=== PATIENT | male | born 1950 | race Caucasian/White ===

== ENCOUNTER 2022-11-22 08:04 | Outpatient (CLI) | payer MEDICARE, SELFPAY ==
[2022-11-22 10:14] LABS: Chloride* 101 mmol/L (96-114); Potassium* 4.5 mmol/L (3.6-5.1); Sodium* 139 mmol/L (135-149)
[2022-11-22 10:17] LABS: Blood Urea Nitrogen* 42 mg/dL (7-30); Carbon Dioxide* 29 mmol/L (20-32); Creatinine* 1.7 mg/dL (0.5-1.5); Estimated Glomerular Filt Rate 42 ml/min
[2022-11-22 10:18] LABS: Calcium* 9.8 mg/dL (8.4-10.6); Glucose* 123 mg/dL (60-115)
== END 2022-11-22 08:05 | disposition home or self-care (01) ==
PROVIDERS: Visit Provider Surgery
DX: E11.621 Type 2 diabetes mellitus with foot ulcer (principal); L97.526 Non-pressure chronic ulcer of other part of left foot with bone involvement without evidence of necrosis; I70.202 Unspecified atherosclerosis of native arteries of extremities, left leg
CPT/HCPCS: 36415; 80048; 87070; 87077; 87186; 97597; 99203

== ENCOUNTER 2022-11-24 14:38 | Outpatient (CLI) | payer MEDICARE, SELFPAY ==
--- NOTE | 2022-11-24 15:00 | CRLHL7_ITS ---
For Patients: As a result of the 21st Century Cures Act, medical imaging exams and procedure reports are released immediately into your electronic medical record. You may view this report before your referring provider. If you have questions, please contact your health care provider. DUPLEX BILATERAL LOWER EXTREMITY ARTERIAL ULTRASOUND INDICATION: Nonhealing left foot wound. COMPARISON: None. TECHNIQUE: The bilateral lower extremity arteries were examined per exam specific protocol with tse-scale ultrasound, color-flow and Doppler spectral analysis. Peak systolic velocities (PSV), Doppler waveform quality and Velocity Ratios if applicable, were documented at sites per exam specific protocol. FINDINGS: Extensive shadowing atherosclerotic calcification is seen throughout the bilateral lower extremity arterial systems, which may obscure underlying disease. Right lower extremity: Multiphasic waveforms are seen in the common femoral, deep femoral, and proximal and mid-femoral arteries with transition to monophasic waveforms in the distal SFA. No hemodynamically significant stenoses or occlusions are identified. Left lower extremity: Multiphasic waveforms are seen in the common femoral, deep femoral, proximal femoral arteries with transition to monophasic waveforms in the mid-femoral artery. Elevated velocities are seen in the popliteal artery measuring up to 270 cm/s, which may be indicative of underlying disease in this region. RIGHT: PSV (cm/second). Waveform (Tri-T, Bi-B Oldham-M). HEAT PLANT SPECIALIST: 207. Bi. DFA: 97. Tri. FA PRX: 92. Bi. FA MID: 68. Bi. FA DISTAL: 94. [place]ham. POP A: 84. Bi. RENATA A: 41. [place]ham. DOCUMENTATION ANALYST: 12. Oldham. GAIL: 14. Oldham. DPA: 42. [place]ham. LEFT: PSV (cm/second). Waveform (Tri-T, Bi-B Oldham-M). HEAT PLANT SPECIALIST: 94. Bi. DFA: 71. Tri. FA PRX: 52. Bi. FA MID: 30. Oldham. FA DISTAL: 50. Oldham. POP A: 270. Oldham. RENATA A: 17. Oldham. DOCUMENTATION ANALYST: 25. Oldham. GAIL: 51. Oldham. DPA: 55. Oldham. IMPRESSION: 1. Right lower extremity: Transition to monophasic waveforms in the distal SFV which may be indicative of underlying disease in this region. No hemodynamically significant stenoses or occlusions are identified. 2. Left lower extremity: Transition to monophasic waveforms in the mid-femoral artery, which may be indicative of underlying disease in this region. Elevated velocities in the popliteal artery which may be indicative of underlying disease in this region. No hemodynamically significant stenoses or occlusions are definitively identified. Reddy Wilkerson M.D. [email or web address] RISA/Dictated by: Reddy Wilkerson MD @ 11/25/2022 12:21:00 PM (Electronically Signed)
== END 2022-11-24 14:39 | disposition home or self-care (01) ==
LOC: US 14:40
PROVIDERS: Visit Provider Surgery
DX: E08.621 Diabetes mellitus due to underlying condition with foot ulcer (principal); L97.509 Non-pressure chronic ulcer of other part of unspecified foot with unspecified severity; I70.202 Unspecified atherosclerosis of native arteries of extremities, left leg
CPT/HCPCS: 93926

== ENCOUNTER 2022-11-29 08:40 | Outpatient (CLI) | payer MEDICARE, SELFPAY | END 2022-11-29 08:41 | disposition home or self-care (01) | LOC: WOUND 08:40 | PROVIDERS: Visit Provider Surgery | DX: E11.621 Type 2 diabetes mellitus with foot ulcer (principal); L97.526 Non-pressure chronic ulcer of other part of left foot with bone involvement without evidence of necrosis; I70.202 Unspecified atherosclerosis of native arteries of extremities, left leg; Z79.4 Long term (current) use of insulin; Z79.84 Long term (current) use of oral hypoglycemic drugs | CPT/HCPCS: 97602; 99214 ==

== ENCOUNTER 2022-12-06 08:32 | Outpatient (CLI) | payer MEDICARE, SELFPAY | END 2022-12-06 08:33 | disposition home or self-care (01) | LOC: WOUND 08:32 | PROVIDERS: Visit Provider Surgery | DX: E11.621 Type 2 diabetes mellitus with foot ulcer (principal); L97.523 Non-pressure chronic ulcer of other part of left foot with necrosis of muscle; L97.509 Non-pressure chronic ulcer of other part of unspecified foot with unspecified severity; Z79.4 Long term (current) use of insulin; Z79.84 Long term (current) use of oral hypoglycemic drugs | CPT/HCPCS: 97602; 99212 ==

== ENCOUNTER 2022-12-07 09:08 | Outpatient (CLI) | payer MEDICARE, SELFPAY ==
--- NOTE | 2022-12-07 09:15 | CRLHL7_ITS ---
For Patients: As a result of the Cures Act, medical imaging exams and procedure reports are released immediately into your electronic medical record. You may view this report before your referring provider. If you have questions, please contact your health care provider. INDICATION: Ulcer lateral left 4th toe. COMPARISON: None. TECHNIQUE: Axial T1 and STIR, coronal T1 and STIR and sagittal T1 and STIR left forefoot. FINDINGS: No abnormal marrow signal. Soft tissue edema dorsally with swelling. No abscess or other organized fluid. No soft tissue mass. No tenosynovitis. High STIR intermediate T1 bandage or marker in the interspace between 4th and 5th toes. Similar appearance across the dorsum of the foot. IMPRESSION: No evidence for osteomyelitis. No abscess. Diffuse prominent nonspecific soft tissue edema. Dictated by Jose Guadalupe Polanco MD @ 12/07/2022 3:16:46 PM (Electronically Signed)
== END 2022-12-07 09:09 | disposition home or self-care (01) ==
LOC: MRI 09:09
PROVIDERS: Visit Provider Surgery
DX: E08.621 Diabetes mellitus due to underlying condition with foot ulcer (principal); L97.509 Non-pressure chronic ulcer of other part of unspecified foot with unspecified severity
CPT/HCPCS: 73718

== ENCOUNTER 2023-01-03 08:32 | Outpatient (CLI) | payer MEDICARE, SELFPAY | END 2023-01-03 08:33 | disposition home or self-care (01) | LOC: WOUND 08:32 | PROVIDERS: Visit Provider Physician Assistant Surgical | DX: E11.621 Type 2 diabetes mellitus with foot ulcer (principal); L97.526 Non-pressure chronic ulcer of other part of left foot with bone involvement without evidence of necrosis; I73.9 Peripheral vascular disease, unspecified; G62.9 Polyneuropathy, unspecified; Z79.84 Long term (current) use of oral hypoglycemic drugs | CPT/HCPCS: 11043; 99213 ==

== ENCOUNTER 2023-01-10 08:45 | Outpatient (CLI) | payer MEDICARE, SELFPAY | END 2023-01-10 08:46 | disposition home or self-care (01) | LOC: WOUND 08:46 | PROVIDERS: Visit Provider Surgery | DX: E11.621 Type 2 diabetes mellitus with foot ulcer (principal); L97.526 Non-pressure chronic ulcer of other part of left foot with bone involvement without evidence of necrosis | CPT/HCPCS: 97597; 99213 ==